=== PATIENT | male | born 1945 | race Caucasian/White ===

== ENCOUNTER → 2021-04-03 | Outpatient (CLI) | payer MEDICARE, OTHER ==
--- NOTE | 2021-04-03 14:03 | RAD ---
EXAMINATION: CT ABDOMEN+PELVIS WO CLINICAL HISTORY: ELEVATED C-REACTIVE PROTEIN, WEIGHT LOSS TECHNIQUE: Imaging of the abdomen and pelvis was performed without intravenous contrast using standar d technique, scanning from just above the dome of the diaphragm to the symphysis pubis. Unenhanced i maging is limited for the evaluation of some intra-abdominal and pelvic pathology. CT Dose Reduction Employed: One or more of the following individualized dose reduction techniques wer e utilized for this examination: 1. Automated exposure control 2. Adjustment of the mA and/or kV ac cording to patient size 3. Use of iterative reconstruction technique. COMPARISON: None FINDINGS: Coronary atherosclerotic calcifications/stents. Mild bibasilar subsegmental atelectasis and/or scarri ng with superimposed reticulation. Small calcifications in the liver and spleen, compatible with sequelae of old granulomatous disease. Cholecystectomy. Pancreas and adrenal glands unremarkable. Nonspecific bilateral perinephric stranding. Limited evaluation of the unenhanced kidneys otherwise u nremarkable. Minimally filled urinary bladder suboptimally evaluated. Prostate at upper limits of normal in size. No dilated bowel. Moderate diverticulosis in the descending and sigmoid colon without evidence of acu te diverticulitis on limited noncontrast evaluation. Submucosal fat deposition in the ascending colon , nonspecific but can be seen with chronic colitis. Appendix within normal limits. Arterial atherosclerotic calcification without aneurysm. Multilevel degenerative changes in the thoracolumbar spine. IMPRESSION: No evidence of acute abdominopelvic abnormality on limited noncontrast evaluation. Multiple nonacute findings as described. Electronically signed by: Anderson Galvan DO (04/03/2021 2:01 PM) [facility]
== END ==
LOC: CT 12:47
PROVIDERS: ATTEND Internal Medicine
DX: K57.30 Diverticulosis of large intestine without perforation or abscess without bleeding (principal); I25.10 Atherosclerotic heart disease of native coronary artery without angina pectoris; D73.89 Other diseases of spleen; K76.89 Other specified diseases of liver; R79.82 Elevated C-reactive protein (CRP); R63.4 Abnormal weight loss; M47.815 Spondylosis without myelopathy or radiculopathy, thoracolumbar region; Z90.49 Acquired absence of other specified parts of digestive tract
CPT/HCPCS: 74176